=== PATIENT | female | born 1970 | race Caucasian/White ===

== ENCOUNTER 2022-07-02 14:24 | Outpatient (CLI) | payer BC, SELFPAY ==
--- NOTE | 2022-07-02 14:40 | CRLHL7_ITS ---
For Patients: As a result of the Century Cures Act, medical imaging exams and procedure reports are released immediately into your electronic medical record. You may view this report before your referring provider. If you have questions, please contact your health care provider. BILATERAL SCREENING MAMMOGRAM WITH COMPUTER-AIDED DETECTION AND TOMOSYNTHESIS TECHNIQUE: CC and MLO views were obtained. These mammographic images have been obtained using full-field digital technique. These mammographic images were interpreted with the benefit of computer-aided detection. Breast Tomosynthesis was used in this interpretation. COMPARISON FILM: 10/18/20, 04/21/19, 04/22/18. FINDINGS: There are scattered areas of fibroglandular density IMPRESSION: There is no radiographic evidence for malignancy. ASSESSMENT: BI-RADS Category 1: Negative RECOMMENDATION: Routine screening mammogram in 1 year. A lay language report of this examination will be provided to the patient. Christiano Sutherland M.D. Diagnostic Radiologist [email or web address] [place]/Dictated by: Christiano Sutherland MD @ 07/03/2022 9:09:00 AM (Electronically Signed)
== END 2022-07-02 14:25 | disposition home or self-care (01) ==
LOC: MAMMO 14:24
PROVIDERS: PCP Obstetrics & Gynecology; Visit Provider Obstetrics & Gynecology
DX: Z12.31 Encounter for screening mammogram for malignant neoplasm of breast (principal)
CPT/HCPCS: 77063; 77067

== ENCOUNTER 2023-09-16 08:16 | Outpatient (CLI) | payer BC, SELFPAY ==
--- NOTE | 2023-09-16 08:15 | MM_ITS ---
Patient: TRIXIE LYNNE Facility:?[facility] Patient ID:?[id number] Site Patient ID:?[id number]. Site :?[id number] Study:?XRay-Breast Bilateral 3D W/CAD-09/16/2023 9:21:52 AM Ordering Physician:?Not a Local Final Report: BILATERAL SCREENING MAMMOGRAM WITH COMPUTER-AIDED DETECTION AND TOMOSYNTHESIS TECHNIQUE: CC and MLO views were obtained. These mammographic images have been obtained using full-field digital technique. These mammographic images were interpreted with the benefit of computer-aided detection. Breast tomosynthesis was used in this interpretation. COMPARISON FILM: 07/02/22, 10/18/20, 04/21/19. FINDINGS: There are scattered areas of fibroglandular density. IMPRESSION: There is no radiographic evidence for malignancy. ASSESSMENT: BI-RADS Category 1: Negative RECOMMENDATION: Routine screening mammogram in 1 year. A lay language report of this examination will be provided to the patient. OSVALDO VILLAFUERTE M.D. Diagnostic Radiologist [email or web address] [email or web address] Transcribed: 3:[address]/Dictated by: Osvaldo Villafuerte MD @ 09/17/2023 12:26:00 PM Signed by:?Osvaldo Villafuerte MD @09/17/2023 9:34:30 PM (Electronic Signature)
== END 2023-09-16 08:17 | disposition home or self-care (01) ==
DX: Z12.31 Encounter for screening mammogram for malignant neoplasm of breast (principal)
CPT/HCPCS: 77063; 77067

== ENCOUNTER 2025-01-11 14:00 | Outpatient (CLI) | payer BC, SELFPAY ==
--- NOTE | 2025-01-11 14:00 | CRLHL7_ITS ---
For Patients: As a result of the Century Cures Act, medical imaging exams and procedure reports are released immediately into your electronic medical record. You may view this report before your referring provider. If you have questions, please contact your health care provider. INDICATION: BILATERAL SCREENING MAMMOGRAM, ASYMPTOMATIC 54 Y/O FEMALE COMPARISON: 09/16/2023, 07/02/2022, 10/18/2020 TECHNIQUE: Digital mammogram in CC and MLO projections including computer-aided detection (CAD) and tomosynthesis. BREAST COMPOSITION: There are scattered areas of fibroglandular density. FINDINGS: No suspicious findings. ASSESSMENT: BI-RADS 1 Negative RECOMMENDATION: Annual screening mammogram. A lay language report of this examination will be provided to the patient. Dictated by: Lisa Jones MD @ 01/12/2025 10:52:58 (Electronically Signed)
== END 2025-01-11 14:01 | disposition home or self-care (01) ==
LOC: MAMMO 14:02
PROVIDERS: PCP Family Medicine; Visit Provider Family Medicine
DX: Z12.31 Encounter for screening mammogram for malignant neoplasm of breast (principal)
CPT/HCPCS: 77063; 77067